=== PATIENT | female | born 1930 | race Caucasian/White ===

== ENCOUNTER 2016-03-28 13:37 | Inpatient (IN) | payer MEDICARE ==
[2016-03-28] MEDS ORDERED: LABETALOL SYRINGE 5 MG/ML IVP STA ×2 (14:04→15:07)
[2016-03-28] MEDS ORDERED: METOPROLOL TARTRATE 25 MG TAB PO STA (14:04)
--- NOTE | 2016-03-28 14:07 | ED ---
General Adult HPI - General Stated complaint: RAPID HEART RATE, ABNORMAL EKG Time Seen by Provider: 03/28/16 13:40 Source: RN notes reviewed - History of Present Illness Initial comments: This is an 85-year-old female who presents emergency Department complaining of a cough recently so she went to see her primary medical care doctor. Patient went to a medical care doctor's office and was told her heart rate was too fast and she needed to go to the emergency department. Patient states she didn't feel like her heart was racing and she didn't have any chest pain or difficulty breathing or shortness of breath. Patient states she's always got edema but she thought the edema in her legs was more decreased recently. Patient states she still has a cough but is not coughing up any sputum. Patient denies any fever or chills. Patient denies any abdominal pain patient denies nausea vomiting diarrhea. Patient denies headache patient denies numbness weakness. Patient denies any lightheadedness dizziness or near syncopal episode. - Related Data Home Medications Medication Instructions Recorded Confirmed Albuterol Sulfate [Proair Hfa] 1 - 2 puff INHALATION RT-Q6H PRN 03/28/16 Budesonide/Formoterol Fumarate 2 puff INHALATION RT-BID 03/28/16 03/28/16 [Symbicort 80-4.5 Mcg Inhaler] Lactulose 10 gm PO TID 03/28/16 03/28/16 Levothyroxine Sodium [Synthroid] 50 mcg PO DAILY 03/28/16 03/28/16 Losartan Potassium 100 mg PO HS 03/28/16 03/28/16 Metoprolol Tartrate [Lopressor] 25 mg PO BID 03/28/16 03/28/16 Spironolactone [Aldactone] 12.5 mg PO DAILY 03/28/16 03/28/16 Torsemide [Demadex] 10 mg PO DAILY PRN 03/28/16 03/28/16 Warfarin [Coumadin] 2.5 mg PO SUMOWEFRSA 03/28/16 03/28/16 Allergies Allergy/AdvReac Type Severity Reaction Status Date / Time codeine Allergy Unknown Verified 03/28/16 14:31 Penicillins Allergy Unknown Verified 03/28/16 14:31 Review of Systems ROS Statement: Those systems with pertinent positive or pertinent negative responses have been documented in the HPI. ROS Other: All systems not noted in ROS Statement are negative. General Exam - General Exam Comments Initial Comments: GENERAL: Patient is well-developed and well-nourished. Patient is nontoxic and well- hydrated and is in no acute distress. ENT: Neck is soft and supple. No significant lymphadenopathy is noted. Oropharynx is clear. Moist mucous membranes. Neck has full range of motion without eliciting any pain. EYES: The sclera were anicteric and conjunctiva were pink and moist. Extraocular movements were intact and pupils were equal round and reactive to light. Eyelids were unremarkable. PULMONARY: Unlabored respirations. Good breath sounds bilaterally. No audible rales rhonchi or wheezing was noted. CARDIOVASCULAR: Patient is tachycardic and irregular at about 130 beats minute ABDOMEN: Soft and nontender with normal bowel sounds. SKIN: Skin is clear with no lesions or rashes and otherwise unremarkable. NEUROLOGIC: Patient is alert and oriented x3. Cranial nerves II through XII are grossly intact. Motor and sensory are also intact. Normal speech, volume and content. Symmetrical smile. MUSCULOSKELETAL: Normal extremities with adequate strength and full range of motion. No lower extremity swelling or edema. No calf tenderness. LYMPHATICS: No significant lymphadenopathy is noted PSYCHIATRIC: Normal psychiatric evaluation. Course Vital Signs 03/28/16 03/28/16 03/28/16 13:48 14:00 14:23 Temperature 97.7 F Pulse Rate 113 H 110 H Pulse Rate [ 120 H Apical] Respiratory 20 20 Rate Blood Pressure 205/128 209/103 O2 Sat by Pulse 95 97 Oximetry 03/28/16 03/28/16 03/28/16 14:51 15:14 15:35 Temperature Pulse Rate 111 H 107 H Pulse Rate [ Apical] Respiratory 20 18 Rate Blood Pressure 172/118 180/110 169/122 O2 Sat by Pulse 97 98 Oximetry 03/28/16 15:40 Temperature Pulse Rate 101 H Pulse Rate [ Apical] Respiratory 18 Rate Blood Pressure 174/94 O2 Sat by Pulse 96 Oximetry Medical Decision Making - Medical Decision Making EKG shows atrial fibrillation with a rapid ventricular response at 129 bpm QRS is 96 QT interval 338 QTC C is 495. Patient's EKG also has a PVC. Patient has no ST segment elevation. Chest x-ray shows no acute abnormality. Patient's blood pressure remained high she was given 10 of labetalol was repeated and continued to be high and her heart rate continued to be over 100 she was given 10 of hydralazine at this point. Patient also had her morning dose of metoprolol while she was here. Patient's heart rate continued to be mildly elevated in the low 100s and blood pressure remained slightly elevated - Lab Data Result diagrams: 03/28/16 14:00 03/28/16 14:00 Lab Results 03/28/16 03/28/16 03/28/16 Range/Units 14:00 14:00 14:00 WBC 5.5 (3.8-10.6) k/uL RBC 5.16 (3.80-5.40) m/uL Hgb 15.4 (11.4-16.0) gm/dL Hct 48.9 H (34.0-46.0) % MCV 94.8 (80.0-100.0) fL MCH 29.9 (25.0-35.0) pg MCHC 31.6 (31.0-37.0) g/dL RDW 13.5 (11.5-15.5) % Plt Count 225 (150-450) k/uL Neutrophils % 72 % Lymphocytes % 17 % Monocytes % 8 % Eosinophils % 1 % Basophils % 1 % Neutrophils # 4.0 (1.3-7.7) k/uL Lymphocytes # 0.9 L (1.0-4.8) k/uL Monocytes # 0.4 (0-1.0) k/uL Eosinophils # 0.1 (0-0.7) k/uL Basophils # 0.1 (0-0.2) k/uL PT (9.0-12.0) sec INR (<1.1) APTT (22.0-30.0) sec Sodium 142 (137-145) mmol/L Potassium 4.2 (3.5-5.1) mmol/L Chloride 101 (98-107) mmol/L Carbon Dioxide 29 (22-30) mmol/L Anion Gap 12 mmol/L BUN 23 H (7-17) mg/dL Creatinine 1.02 (0.52-1.04) mg/dL Est GFR (MDRD) Af Amer >60 (>60 ml/min/1.73 sqM) Est GFR (MDRD) Non-Af 51 (>60 ml/min/1.73 sqM) Glucose 116 H (74-99) mg/dL Calcium 9.5 (8.4-10.2) mg/dL Magnesium 1.4 L (1.6-2.3) mg/dL Total Bilirubin 1.3 (0.2-1.3) mg/dL AST 31 (14-36) U/L ALT 24 (9-52) U/L Alkaline Phosphatase 110 (38-126) U/L Total Creatine Kinase 55 (30-135) U/L CK-MB (CK-2) 2.0 (0.0-2.4) ng/mL CK-MB (CK-2) Rel Index 3.6 Troponin I 0.023 (0.000-0.034) ng/mL NT-Pro-B Natriuret Pep pg/mL Total Protein 7.2 (6.3-8.2) g/dL Albumin 3.8 (3.5-5.0) g/dL 03/28/16 03/28/16 Range/Units 14:00 14:00 WBC (3.8-10.6) k/uL RBC (3.80-5.40) m/uL Hgb (11.4-16.0) gm/dL Hct (34.0-46.0) % MCV (80.0-100.0) fL MCH (25.0-35.0) pg MCHC (31.0-37.0) g/dL RDW (11.5-15.5) % Plt Count (150-450) k/uL Neutrophils % % Lymphocytes % % Monocytes % % Eosinophils % % Basophils % % Neutrophils # (1.3-7.7) k/uL Lymphocytes # (1.0-4.8) k/uL Monocytes # (0-1.0) k/uL Eosinophils # (0-0.7) k/uL Basophils # (0-0.2) k/uL PT 16.5 H (9.0-12.0) sec INR 1.7 (<1.1) APTT 28.0 (22.0-30.0) sec Sodium (137-145) mmol/L Potassium (3.5-5.1) mmol/L Chloride (98-107) mmol/L Carbon Dioxide (22-30) mmol/L Anion Gap mmol/L BUN (7-17) mg/dL Creatinine (0.52-1.04) mg/dL Est GFR (MDRD) Af Amer (>60 ml/min/1.73 sqM) Est GFR (MDRD) Non-Af (>60 ml/min/1.73 sqM) Glucose (74-99) mg/dL Calcium (8.4-10.2) mg/dL Magnesium (1.6-2.3) mg/dL Total Bilirubin (0.2-1.3) mg/dL AST (14-36) U/L ALT (9-52) U/L Alkaline Phosphatase (38-126) U/L Total Creatine Kinase (30-135) U/L CK-MB (CK-2) (0.0-2.4) ng/mL CK-MB (CK-2) Rel Index Troponin I (0.000-0.034) ng/mL NT-Pro-B Natriuret Pep 2610 pg/mL Total Protein (6.3-8.2) g/dL Albumin (3.5-5.0) g/dL Critical Care Time Critical Care Time: Yes Total Critical Care Time: 35 Disposition Clinical Impression: Atrial fibrillation with rapid ventricular response, Hypertensive urgency Disposition: ADMITTED IP TO THIS HOSP Referrals: Brody Keen MD [Primary Care Provider] - 1-2 days Time of Disposition: 15:45
[2016-03-28 14:30] LABS: Basophils # (A) 0.1 k/uL (0-0.2); Basophils % (A) 1 %; CHCM 32.9; Eosinophils # (A) 0.1 k/uL (0-0.7); Eosinophils % (A) 1 %; HCT 48.9 % (34.0-46.0); HDW 2.49; HGB 15.4 gm/dL (11.4-16.0); Luc # (Auto) 0.07; Luc % (Auto) 1; Lymphocytes # (A) 0.9 k/uL (1.0-4.8); Lymphocytes % (A) 17 %; MCH 29.9 pg (25.0-35.0); MCHC 31.6 g/dL (31.0-37.0); MCV 94.8 fL (80.0-100.0); Mean Platelet Volume 8.5; Monocytes # (A) 0.4 k/uL (0-1.0); Monocytes % (A) 8 %; Neutrophils % (A) 72 %; RBC 5.16 m/uL (3.80-5.40); RDW 13.5 % (11.5-15.5); WBC 5.5 k/uL (3.8-10.6); WBC (Perox) 5.37
[2016-03-28 14:34] LABS: INR 1.7 (<1.1); Prothrombin Time 16.5 sec (9.0-12.0)
[2016-03-28 14:37] LABS: ALT 24 U/L (9-52); AST 31 U/L (14-36); Alkaline Phosphatase 110 U/L (38-126); Anion Gap 12 mmol/L; Blood Urea Nitrogen 23 mg/dL (7-17); Calcium 9.5 mg/dL (8.4-10.2); Carbon Dioxide 29 mmol/L (22-30); Chloride 101 mmol/L (98-107); Glucose 116 mg/dL (74-99); Magnesium 1.4 mg/dL (1.6-2.3); Non-African American GFR(MDRD) 51 (>60 ml/min/1.73 sqM); Potassium 4.2 mmol/L (3.5-5.1); Sodium 142 mmol/L (137-145); Total Bilirubin 1.3 mg/dL (0.2-1.3); Total Protein 7.2 g/dL (6.3-8.2)
--- NOTE | 2016-03-28 14:58 | XR ---
EXAMINATION TYPE: XR chest 2V DATE OF EXAM: 03/28/2016 2:49 PM COMPARISON: NONE INDICATION: Difficulty breathing TECHNIQUE: Frontal and lateral views of the chest are obtained. FINDINGS: Heart size is enlarged The pulmonary vasculature is normal. The lungs are clear. IMPRESSION: 1. Cardiomegaly
[2016-03-28 15:01] LABS: Troponin I 0.023 ng/mL (0.000-0.034)
[2016-03-28] MEDS ORDERED: hydrALAZINE HCL 20 MG/ML 1 ML VIAL IVP STA (15:34)
[2016-03-28] MEDS ORDERED: SODIUM CHLORIDE 0.9% 1,000 ML IV ONE (15:58)
[2016-03-28] MEDS ORDERED: TORSEMIDE 20 MG TAB PO PRN (16:01)
[2016-03-28] MEDS ORDERED: WARFARIN 2.5 MG TAB PO SCH (18:00)
[2016-03-28] MEDS ORDERED: LOSARTAN 50 MG TAB PO SCH (21:00)
[2016-03-28 21:02] VITALS: BMI 42.2
[2016-03-28] MEDS: METOPROLOL TARTRATE 25 MG TAB PO SCH (22:05)
[2016-03-28] MEDS: NITROGLYCERIN OINT 1 INCH/GM PACKET TOPICAL SCH (22:54)
[2016-03-28] MEDS: LISINOPRIL 20 MG TAB PO SCH (22:54)
[2016-03-28] MEDS: DILTIAZEM 125 MG in SODIUM CHLORIDE 0.9% 100 ML IV SCH (22:54)
[2016-03-29] MEDS ORDERED: Magnesium Replacement Protocol 1 EACH MISC MISCELLANE PRN (02:21)
[2016-03-29] MEDS: MAGNESIUM SULFATE-D5W PMX 1 GM in DEXTROSE/WATER 1 100ML.BAG IVPB SCH ×3 (03:22→06:55)
[2016-03-29 07:42] LABS: INR 1.8 (<1.1); Prothrombin Time 17.2 sec (9.0-12.0)
[2016-03-29] MEDS: LISINOPRIL 20 MG TAB PO SCH (08:21)
[2016-03-29] MEDS: NITROGLYCERIN OINT 1 INCH/GM PACKET TOPICAL SCH (08:21)
[2016-03-29] MEDS: METOPROLOL TARTRATE 25 MG TAB PO SCH (08:22)
[2016-03-29] MEDS: LEVOTHYROXINE 50 MCG TAB PO SCH (08:25)
[2016-03-29] MEDS: DILTIAZEM 125 MG in SODIUM CHLORIDE 0.9% 100 ML IV SCH (11:55)
[2016-03-29] MEDS: SPIRONOLACTONE 25 MG TAB PO SCH (11:56)
[2016-03-29 13:31] LABS: Hemoglobin A1C 6.2 % (4.2-6.1)
[2016-03-29] MEDS ORDERED: ACETAMINOPHEN TAB 500 MG TAB PO PRN (15:48)
[2016-03-29] MEDS ORDERED: ALPRAZolam 0.25 MG TAB PO PRN (15:48)
[2016-03-29] MEDS: METOPROLOL SUCCINATE (ER) 50 MG TAB.ER.24H PO SCH (16:56)
[2016-03-29] MEDS: FUROSEMIDE 10 MG/ML 4 ML VIAL IV SCH (16:56)
--- NOTE | 2016-03-29 17:20 | P.CRDCN ---
History of Present Illness Consult reason: atrial fibrillation History of present illness: 85-year-old female who was sent by her primary care physician for management of atrial fibrillation with RVR. The patient denied any palpitations she may have been short of breath and she has slight cough and lower extremity edema. She denies any dizziness right heaviness chest discomfort and does not experience any palpitations. Twelve-lead ECG showed A. fib with RVR Medication list was reviewed. She is already on metoprolol 25 mg twice daily and takes Coumadin but does not know why she takes Coumadin ALLERGIES were reviewed Review of systems: No fever chills or rigors, no cough, phlegm or expectoration , no nausea, vomiting or diarrhea, no hematuria, dysuria, no musculoskeletal complaints, no strokes or seizures, no skin lesions. On examination Rhythm was irregular. Heart sounds are soft soft systolic murmur Breath sounds are normal Abdomen soft nontender Mild lower extremity edema She's afebrile, respirations 16, pulse rate between 8200, blood pressure 139/91 mmHg Labs are reviewed. Hemoglobin is normal INR is subtherapeutic at lites are normal GFR 51 TSH 1.3 chronic enzymes normal magnesium is low Hematoma and A1c 6.2 Impression BMI 42 Atrial fibrillation with RVR, unknown duration Minimal symptoms from atrial fibrillation according to the patient Hypertension She states that she has borderline diabetes Hypermagnesemia Suggest Increase the dose of Coumadin to 4 mg by mouth daily Changed to metoprolol succinate 50 mrem twice daily Increase losartan to 150 mrem by mouth daily Taper off IV Cardizem Stop IV Lasix tomorrow 2-D echo after rate control of atrial fibrillation Past Medical History Past Medical History: Atrial Fibrillation, Heart Failure, COPD, Diabetes Mellitus, GERD/Reflux, Hypertension, Renal Disease, Thyroid Disorder Additional Past Medical History / Comment(s): pt stated border line diabetic History of Any Multi-Drug Resistant Organisms: None Reported Past Surgical History: Cholecystectomy, Joint Replacement, Orthopedic Surgery Past Anesthesia/Blood Transfusion Reactions: No Reported Reaction Past Psychological History: No Psychological Hx Reported Smoking Status: Never smoker Past Alcohol Use History: None Reported Past Drug Use History: None Reported - Past Family History Father Family Medical History: Cancer, Myocardial Infarction ([place]) Additional Family Medical History / Comment(s): from cancer and acute [place] Mother Family Medical History: Congestive Heart Failure (CHF) Additional Family Medical History / Comment(s): lew page in the lower extremity, at the age 91 Medications and Allergies Home Medications Medication Instructions Recorded Confirmed Type Albuterol Sulfate [Proair Hfa] 1 - 2 puff INHALATION RT-Q6H PRN 03/28/16 History Budesonide/Formoterol Fumarate 2 puff INHALATION RT-BID 03/28/16 03/28/16 History [Symbicort 80-4.5 Mcg Inhaler] Levothyroxine Sodium [Synthroid] 50 mcg PO DAILY 03/28/16 03/28/16 History Losartan Potassium 100 mg PO HS 03/28/16 03/28/16 History Metoprolol Tartrate [Lopressor] 25 mg PO BID 03/28/16 03/28/16 History Spironolactone [Aldactone] 12.5 mg PO DAILY 03/28/16 03/28/16 History Torsemide [Demadex] 10 mg PO DAILY PRN 03/28/16 03/28/16 History Warfarin [Coumadin] 2.5 mg PO SUMOWEFRSA 03/28/16 03/28/16 History Allergies Allergy/AdvReac Type Severity Reaction Status Date / Time codeine Allergy Unknown Verified 03/28/16 14:31 Penicillins Allergy Unknown Verified 03/28/16 14:31 Physical Exam Vitals: Vital Signs Temp Pulse Pulse Pulse Resp BP BP 03/29/16 16:00 85 16 139/91 03/29/16 15:08 16 03/29/16 12:00 94 16 130/83 03/29/16 08:00 97.3 F L 103 H 16 132/82 03/29/16 04:00 97.0 F L 96 117 H 19 143/105 03/29/16 00:00 97.5 F L 108 H 16 117/80 03/28/16 22:46 124 H 18 175/106 03/28/16 21:30 120 H 18 186/97 03/28/16 18:07 109 H 18 165/90 Pulse Ox 03/29/16 16:00 93 L 03/29/16 15:08 03/29/16 12:00 92 L 03/29/16 08:00 03/29/16 04:00 94 L 03/29/16 00:00 96 03/28/16 22:46 97 03/28/16 21:30 96 03/28/16 18:07 95 Intake and Output 03/29/16 03/29/16 03/29/16 06:59 14:59 22:59 Intake Total 590 541 320 Output Total 600 Balance -10 541 320 Intake: IV 390 320 Diltiazem 125 mg In 80 80 Sodium Chloride 0.9% 100 ml @ 10 MG/HR 10 mls/hr IV .[id number] [facility] Rx#: [id number] Magnesium Sulfate-D5w Pmx 150 1 gm In Dextrose/Water 1 100ml.bag @ 100 mls/hr IVPB Q1H [facility] Rx#: [id number] Sodium Chloride 0.9% 1, 160 240 000 ml @ 20 mls/hr IV . Q24H [facility] Rx#:[id number] Intake, IV Titration 125 Amount Diltiazem 125 mg In 125 Sodium Chloride 0.9% 100 ml @ 10 MG/HR 10 mls/hr IV .[id number] [facility] Rx#: [id number] Oral 200 416 Output: Urine 600 Other: Voiding Method Toilet Toilet Toilet # Voids 2 1 Weight 111.57 kg Results 03/28/16 14:00 03/28/16 14:00 Coagulation 03/29/16 Range/Units 06:32 PT 17.2 H (9.0-12.0) sec Current Medications Generic Name Dose Route Start Last Admin Trade Name Freq PRN Reason Stop Dose Admin Acetaminophen 500 mg 03/29/16 15:48 Tylenol Tab PO Q6HR PRN Fever and/ or Pain Albuterol Sulfate 2.5 mg 03/29/16 20:00 Ventolin Nebulized INHALATION RT-Q6H [facility] Alprazolam 0.25 mg 03/29/16 15:48 Xanax PO TID PRN Anxiety Budesonide/Formoterol Fumarate 2 puff 03/29/16 20:00 Symbicort 80-4.5 Mcg Inhaler INHALATION RT-BID [facility] Furosemide 40 mg 03/29/16 16:00 03/29/16 16:56 Lasix IV 40 mg DAILY [facility] Administration Diltiazem HCl 125 mg/ Sodium 125 mls @ 10 mls/hr 03/28/16 22:00 03/29/16 11: 55 Chloride IV 10 mg/hr .[id number] [facility] 10 mls/hr Protocol Administration 10 MG/HR Levothyroxine Sodium 50 mcg 03/29/16 06:30 03/29/16 08:25 Synthroid PO 50 mcg 0630 [facility] Administration Losartan Potassium 150 mg 03/29/16 17:17 Cozaar PO HS [facility] Melatonin 3 mg 03/29/16 21:00 Melatonin PO HS [facility] Metoprolol Succinate 50 mg 03/29/16 18:00 03/29/16 16:56 Toprol Xl PO 50 mg BID@0600,1800 [facility] Administration Miscellaneous Information 1 each 03/29/16 02:21 Magnesium Per Protocol MISCELLANE DAILY PRN Per Protocol Protocol Pantoprazole Sodium 40 mg 03/30/16 07:30 Protonix PO AC-BRKFST [facility] Spironolactone 12.5 mg 03/29/16 09:00 03/29/16 11:56 Aldactone PO 12.5 mg DAILY [facility] Administration Torsemide 10 mg 03/28/16 16:01 Demadex PO DAILY PRN Edema Warfarin Sodium 5 mg 03/29/16 18:00 03/29/16 16:56 Coumadin PO 03/29/16 18:01 5 mg ONCE@1800 [facility] Administration Warfarin Sodium 4 mg 03/29/16 18:00 Coumadin PO DAILY@1800 [facility] Intake and Output 03/29/16 03/29/16 03/29/16 06:59 14:59 22:59 Intake Total 590 541 320 Output Total 600 Balance -10 541 320 Intake: IV 390 320 Diltiazem 125 mg In 80 80 Sodium Chloride 0.9% 100 ml @ 10 MG/HR 10 mls/hr IV .[id number] [facility] Rx#: [id number] Magnesium Sulfate-D5w Pmx 150 1 gm In Dextrose/Water 1 100ml.bag @ 100 mls/hr IVPB Q1H [facility] Rx#: [id number] Sodium Chloride 0.9% 1, 160 240 000 ml @ 20 mls/hr IV . Q24H [facility] Rx#:[id number] Intake, IV Titration 125 Amount Diltiazem 125 mg In 125 Sodium Chloride 0.9% 100 ml @ 10 MG/HR 10 mls/hr IV .[id number] [facility] Rx#: [id number] Oral 200 416 Output: Urine 600 Other: Voiding Method Toilet Toilet Toilet # Voids 2 1 Weight 111.57 kg
--- NOTE | 2016-03-29 17:40 | HP ---
DATE OF ADMISSION: The chief complaint is rapid heart rate. HISTORY OF PRESENT ILLNESS: This 85-year-old woman with a past medical history of multiple medical problems and atrial fibrillation, history of CHF, COPD, diabetes mellitus, GERD, hypertension, hypothyroidism, history of cholecystectomy being followed by Dr. Brad Keen in the outpatient setting was complaining of cough. Patient was being evaluated for cough in the outpatient setting. The patient was found to have some EKG abnormalities and as well as atrial fibrillation with fast ventricular rate. Patient was taken to [facility], admitted for further evaluation and treatment, nonspecific SVT changes are noted. Patient was started on a Cardizem drip and patient was admitted for further evaluation and treatment. There is no history of fever, chills, or rigors. No history of headache, loss of consciousness. No history of chest pain or palpation. NT-proBNP is 2610. The chest x-ray at the time of admission showed cardiomegaly. PAST MEDICAL HISTORY: History of CHF, history of atrial fibrillation, COPD, diabetes, GERD, hyperlipidemia, hypertension, renal disorder, thyroid disorder, cholecystectomy, DJD. Medications prior to admission include: 1. Coumadin 2.5 mg on Wednesday, Wednesday, Wednesday, Wednesday. 2. Demadex 10 mg daily p.r.n. 3. Aldactone 12.5 mg p.o. daily. 4. Lopressor 25 mg p.o. b.i.d. 5. [id number] mg p.o. q.h.s. 6. Synthroid 50 mcg p.o. daily. 7. Symbicort 80/4.5 two puffs b.i.d. 8. ProAir HFA 1 to 2 puffs q.6 p.r.n. Allergies are CODEINE and PENICILLIN. FAMILY HISTORY: History of cancer, myocardial infarction in the family. SOCIAL HISTORY: No history of smoking, occasional alcohol intake. REVIEW OF SYSTEMS: ENT: Diminished hearing and diminished vision. CARDIOVASCULAR: As mentioned earlier. RESPIRATORY: As mentioned earlier. GI: No nausea. : No dysuria. NERVOUS SYSTEM: No numbness or weakness. ALLERGY/IMMUNOLOGY: No asthma or hayfever. MUSCULOSKELETAL: As mentioned earlier. DERMATOLOGY: As mentioned earlier. ENDOCRINE: Hypothyroidism. CONSTITUTIONAL: As mentioned earlier. DERMATOLOGY: Negative. RHEUMATOLOGY: Negative. PSYCHIATRY: As mentioned earlier. PHYSICAL EXAM: Patient is alert and oriented x3. Pulse is 103, irregular, blood pressure 133/82, respirations 16, temperature is 97.8, pulse ox 92% on room air. HEENT: Conjunctivae normal, oral mucosa moist. NECK: No jugular venous distention. No carotid bruit, no lymph node enlargement. CARDIOVASCULAR: S1, S2, no murmur, no S3, no S4. RESPIRATORY: Breath sounds diminished at the bases, a few scatterer rhonchi, no crackles, respiration in the right base present. Abdomen is soft, obese, nontender, no mass palpable. EXTREMITIES: Legs minimal edema. NERVOUS SYSTEM: Higher functions as mentioned earlier, moves all 4 limbs, no focal motor deficits. LYMPHATICS: No lymph node enlargement in the neck or axillae. SKIN: No ulcerations, rash, bleeding. LABS: WBC 5.5. Otherwise BUN is 20, creatinine is 1.82, magnesium 1.4. ASSESSMENT: 1. Atrial fibrillation with fast ventricular rate. 2. Cough, rule out congestive heart failure acute exacerbation. 3. Hypomagnesemia. 4. Obesity with a body mass index of 42.2. 5. Coumadin monitoring. 6. Diabetes mellitus type 2. 7. History of atrial fibrillation. 8. History of congestive heart failure. 9. Chronic obstructive pulmonary disease. 10. Gastroesophageal reflux disease. 11. Hypertension. 12. History of hypothyroidism. 13. History of degenerative joint disease. 14. FULL CODE. RECOMMENDATION: In this 85-year-old woman who presented with multiple complex medical issues, will monitor the patient closely. Continue with the current medications and continue with and I would recommend continue with Coumadin. I will administer 5 mg of Coumadin today. Otherwise, continue the rest of the medications. Cardiology consultation, beta blockers will be initiated, a 2-D echo with Doppler has been ordered. Further recommendations to follow. Prognosis guarded. Discussed with the patient. Further recommendations to follow. A copy of this will be followed with Dr. Brody Keen who is the primary care physician. MICH
[2016-03-29] MEDS ORDERED: WARFARIN 5 MG TAB PO ONE (18:00)
[2016-03-29] MEDS: WARFARIN 2 MG TAB PO SCH (19:51)
[2016-03-29] MEDS: ALBUTEROL NEBULIZED 2.5 MG/3 ML INHALATION SCH (20:32)
[2016-03-29] MEDS: SYMBICORT 80-4.5 MCG INHALER INHALATION SCH (20:32)
[2016-03-29] MEDS: LOSARTAN 50 MG TAB PO SCH (21:06)
[2016-03-29] MEDS: MELATONIN 3 MG TABLET PO SCH (21:07)
[2016-03-30] MEDS: DILTIAZEM 125 MG in SODIUM CHLORIDE 0.9% 100 ML IV SCH ×2 (01:25→09:36)
[2016-03-30] MEDS: ALBUTEROL NEBULIZED 2.5 MG/3 ML INHALATION SCH ×4 (03:31→21:44)
[2016-03-30 06:18] LABS: Basophils % (A) 0 %; CH 30.7; Eosinophils # (A) 0.2 k/uL (0-0.7); Eosinophils % (A) 4 %; HCT 45.2 % (34.0-46.0); HDW 2.36; HGB 14.2 gm/dL (11.4-16.0); Luc # (Auto) 0.11; Luc % (Auto) 2; Lymphocytes % (A) 21 %; MCH 30.4 pg (25.0-35.0); MCHC 31.5 g/dL (31.0-37.0); MCV 96.4 fL (80.0-100.0); Mean Platelet Volume 7.5; Monocytes # (A) 0.5 k/uL (0-1.0); Monocytes % (A) 10 %; Neutrophils % (A) 63 %; RBC 4.69 m/uL (3.80-5.40); RDW 13.6 % (11.5-15.5); WBC 4.8 k/uL (3.8-10.6); WBC (Perox) 4.92
[2016-03-30 06:23] LABS: Magnesium 1.7 mg/dL (1.6-2.3); Potassium 4.3 mmol/L (3.5-5.1)
[2016-03-30 06:30] LABS: INR 2.1 (<1.1); Prothrombin Time 19.8 sec (9.0-12.0)
[2016-03-30] MEDS: PANTOPRAZOLE 40 MG TABLET PO SCH (06:58)
[2016-03-30] MEDS: METOPROLOL SUCCINATE (ER) 50 MG TAB.ER.24H PO SCH (06:58)
[2016-03-30] MEDS: LEVOTHYROXINE 50 MCG TAB PO SCH (06:59)
[2016-03-30] MEDS: SPIRONOLACTONE 25 MG TAB PO SCH (09:45)
[2016-03-30] MEDS: SYMBICORT 80-4.5 MCG INHALER INHALATION SCH ×2 (09:45→21:44)
[2016-03-30] MEDS: FUROSEMIDE 10 MG/ML 4 ML VIAL IV SCH (09:47)
[2016-03-30] MEDS: MAGNESIUM SULFATE-D5W PMX 1 GM in DEXTROSE/WATER 1 100ML.BAG IVPB SCH ×2 (09:47→11:19)
--- NOTE | 2016-03-30 10:07 | ECHOF ---
Referral Reason:chf MEASUREMENTS -------- HEIGHT: 162.6 cm WEIGHT: 112.9 kg BP: 130/79 RVIDd: 3.5 cm (< 3.3) IVSd: 1.5 cm (0.6 - 1.1) LVIDd: 4.4 cm (3.9 - 5.3) LVPWd: 1.4 cm (0.6 - 1.1) IVSs: 1.8 cm LVIDs: 3.5 cm LVPWs: 2.0 cm LA Diam: 4.1 cm (2.7 - 3.8) LAESV Index (A-L): 45.45 ml/m Ao Diam: 3.2 cm (2.0 - 3.7) AV Cusp: 2.0 cm (1.5 - 2.6) LA Diam: 4.8 cm (2.7 - 3.8) MV EXCURSION: 15.249 mm (> 18.000) MV EF SLOPE: 112 mm/s (70 - 150) EPSS: 0.5 cm MV E Kev: 0.98 m/s MV DecT: 163 ms MV A Kev: 0.38 m/s MV E/A Ratio: 2.56 RAP: 5.00 mmHg RVSP: 52.98 mmHg FINDINGS -------- Resting tachycardia (HR>100bpm). This was a technically good study. There is moderate concentric left ventricular hypertrophy. Overall left ventricular systolic function is normal with, an EF between 55 - 60 %. The right ventricle is mildly enlarged. LA is severely dilated >40 ml/m2 RA appears enlarged. Aortic valve is trileaflet and is mildly thickened. The mitral valve leaflets are mildly thickened. Mild mitral annular calcification present. Mild mitral regurgitation is present. [id number] tricuspid regurgitation present. There is moderate pulmonary hypertension. The right ventricular systolic pressure, as measured by Doppler, is 52.98mmHg. The pulmonic valve was not well visualized. The aortic root size is normal. Normal inferior vena cava with normal inspiratory collapse consistent with estimated right atrial pressure of 5 mmHg. There is no pericardial effusion. CONCLUSIONS -------- 1. Resting tachycardia (HR>100bpm). 2. Mild mitral annular calcification present. 3. Mild mitral regurgitation is present. 4. Cwik-gk-kjwnbnrv tricuspid regurgitation present. 5. There is moderate pulmonary hypertension. 6. The right ventricular systolic pressure, as measured by Doppler, is 52.98mmHg. 7. The pulmonic valve was not well visualized. 8. The aortic root size is normal. 9. There is no pericardial effusion. 10. This was a technically good study. 11. There is moderate concentric left ventricular hypertrophy. 12. Overall left ventricular systolic function is normal with, an EF between 55 - 60 %. 13. The right ventricle is mildly enlarged. 14. LA is severely dilated >40 ml/m2 15. RA appears enlarged. 16. Aortic valve is trileaflet and is mildly thickened. 17. The mitral valve leaflets are mildly thickened. DRAW PRESS OPERATOR: Sid Ramirez RDCS
--- NOTE | 2016-03-30 14:47 | P.PN ---
Subjective Principal diagnosis: Erick luna This is an 85-year-old female admitted to the hospital because of atrial fibrillation with rapid ventricular response. She denies experiencing any palpitations. Patient does state that she's had a persistent cough as well as lower extremity swelling. Patient also has a history of borderline diabetes. Magnesium level on admission 1.4, 1.7 this morning. Continues to be in atrial fibrillation with a heart rate in the 120 range. We will increase the dose of beta quirino, discontinue Cardizem drip, discontinue IV Lasix and start the patient on Lasix 20 mg daily. We will also attempt to obtain records from her primary care doctor regarding why she takes Coumadin. Continue Coumadin 4 mg daily and check daily PT/INRs. INR today is 2.1. Objective - Vital Signs Vital signs: Vital Signs Temp 98.3 F 03/30/16 12:00 Pulse 106 H 03/30/16 12:00 Resp 16 03/30/16 12:00 BP 122/90 03/30/16 12:00 Pulse Ox 94 L 03/30/16 12:00 Intake & Output 03/29/16 03/30/16 03/30/16 18:59 06:59 18:59 Intake Total 861 420 Output Total 500 Balance 361 420 Weight 113.3 kg Intake: IV 320 Diltiazem 125 mg In 80 Sodium Chloride 0.9% 100 ml @ 10 MG/HR 10 mls/hr IV .[id number] [facility] Rx#: [id number] Sodium Chloride 0.9% 1, 240 000 ml @ 20 mls/hr IV . Q24H [facility] Rx#:[id number] Intake, IV Titration 125 200 Amount Diltiazem 125 mg In 125 Sodium Chloride 0.9% 100 ml @ 10 MG/HR 10 mls/hr IV .[id number] [facility] Rx#: [id number] Magnesium Sulfate-D5w Pmx 200 1 gm In Dextrose/Water 1 100ml.bag @ 100 mls/hr IVPB Q1H [facility] Rx#: [id number] Oral 416 220 Output: Urine 500 Other: Voiding Method Toilet # Voids 1 1 2 - Exam PHYSICAL EXAMINATION: HEENT: Head is atraumatic, normocephalic. Pupils equal, round. Neck is supple. There is no elevated jugular venous pressure. HEART EXAMINATION: Heart S1 and S2 irregular irregular CHEST EXAMINATION: Lungs are clear to auscultation and precussion. No chest wall tenderness is noted on palpation or with deep breathing. ABDOMEN: Soft, nontender. Bowel sounds are heard. No organomegaly noted. EXTREMITIES: 2+ peripheral pulses with trace evidence of peripheral edema and no calf tenderness noted. NEUROLOGIC patient is awake, alert and oriented -3. . - Labs CBC & Chem 7: 03/30/16 05:53 03/30/16 05:53 Labs: Abnormal Lab Results - Last 24 Hours (Table) 03/30/16 03/30/16 Range/Units 05:53 05:53 PT 19.8 H (9.0-12.0) sec BUN 24 H (7-17) mg/dL Creatinine 1.14 H (0.52-1.04) mg/dL Glucose 109 H (74-99) mg/dL Assessment and Plan (1) COPD (chronic obstructive pulmonary disease) Status: Acute (2) Diabetes Status: Acute (3) GERD (gastroesophageal reflux disease) Status: Acute (4) Hyperlipemia Status: Acute (5) Renal insufficiency Status: Acute (6) Paroxysmal a-fib Status: Acute (7) Atrial fibrillation with rapid ventricular response Status: Acute (8) Diastolic CHF Status: Acute Plan: Cardiology's perspective, we will increase beta quirino to 100 mg by mouth twice a day, discontinue Cardizem drip, discontinue IV Lasix, start the patient on Lasix 20 mg daily, continue Coumadin 4 mg daily check daily PT/INRs. We will also check to see what the patient was taking Coumadin as an outpatient. DNP note has been reviewed, I agree with a documented findings and plan of care. Patient was seen and examined.
[2016-03-30 18:05] LABS: Appearance,Urine Clear (Clear); Bilirubin,Urine Negative (Negative); Glucose,Urine (UA) Negative (Negative); Ketones,Urine Negative (Negative); Leukocyte Esterase,Urine Negative (Negative); Nitrite,Urine Negative (Negative); Protein,Urine Negative (Negative); Specific Gravity,Urine 1.005 (1.001-1.035); UA Billing (MACRO vs. MICRO) CHEM; Urobilinogen,Urine <2.0 mg/dL (<2.0)
[2016-03-30] MEDS: WARFARIN 2 MG TAB PO SCH ×2 (19:32→19:33)
[2016-03-30] MEDS: LOSARTAN 50 MG TAB PO SCH (20:35)
[2016-03-30] MEDS: METOPROLOL SUCCINATE (ER) 100 MG TAB.ER.24H PO SCH (20:35)
[2016-03-30] MEDS: MELATONIN 3 MG TABLET PO SCH (20:36)
[2016-03-31] MEDS: ALBUTEROL NEBULIZED 2.5 MG/3 ML INHALATION SCH ×2 (02:21→10:18)
--- NOTE | 2016-03-31 06:09 | PN ---
DATE OF SERVICE: 03/30/2016 This 85-year-old woman was admitted with rapid ventricular rate, is being closely monitored. Cardiology is following the patient closely. CHF was also suspected at the time of admission. Beta blockers have been initiated. No chest pain, no palpitations. No fever. On exam, alert and oriented x3. Pulse 86, blood pressure 120/82, respirations 16, temperature 97.4, pulse ox 94% on room air. HEENT: Conjunctivae normal. NECK: No jugular venous distention. CARDIOVASCULAR: S1 and S2, irregular. RESPIRATORY: Breath sounds diminished at the bases. No rhonchi, no crackles. ABDOMEN: Soft, nontender. LEGS: No edema, no swelling. NERVOUS SYSTEM: No focal deficits. LABS: Creatinine 1.14, hemoglobin is 6.2. ASSESSMENT: 1. Atrial fibrillation with fast ventricular rate present on admission. 2. Severe cardiomegaly. 3. Congestive heart failure, acute exacerbation, acute on chronic diastolic dysfunction, ejection fraction 50% to 55%. 4. Cough. 5. Hypermagnesemia. 6. Obesity, body mass index of 42.2. 7. Coumadin monitoring. 8. Diabetes mellitus type 2. 9. History of atrial fibrillation. 10. History of congestive heart failure. 11. History of chronic obstructive pulmonary disease. 12. Gastroesophageal reflux disease. 13. Hypertension. 14. Hypothyroidism. 15. History of degenerative joint disease. 16. FULL CODE. RECOMMENDATIONS AND DISCUSSION: In this 85-year-old woman who presented with multiple medical problems, will monitor the patient closely, continue the current medications and symptomatic treatment. Repeat labs. Closely follow with Cardiology. Check UA with micro. Guarded prognosis because of the multiple complex medical issues. Further recommendations to follow.
[2016-03-31] MEDS: PANTOPRAZOLE 40 MG TABLET PO SCH (06:37)
[2016-03-31] MEDS: LEVOTHYROXINE 50 MCG TAB PO SCH (06:37)
[2016-03-31 06:57] LABS: Basophils % (A) 0 %; CH 30.7; Eosinophils # (A) 0.2 k/uL (0-0.7); Eosinophils % (A) 4 %; HCT 45.8 % (34.0-46.0); HDW 2.36; HGB 14.5 gm/dL (11.4-16.0); Luc # (Auto) 0.16; Luc % (Auto) 3; Lymphocytes # (A) 1.1 k/uL (1.0-4.8); Lymphocytes % (A) 20 %; MCH 30.5 pg (25.0-35.0); MCHC 31.6 g/dL (31.0-37.0); MCV 96.5 fL (80.0-100.0); Mean Platelet Volume 7.3; Monocytes # (A) 0.6 k/uL (0-1.0); Monocytes % (A) 11 %; Neutrophils # (A) 3.4 k/uL (1.3-7.7); Neutrophils % (A) 62 %; RBC 4.74 m/uL (3.80-5.40); RDW 13.5 % (11.5-15.5); WBC 5.5 k/uL (3.8-10.6); WBC (Perox) 5.57
[2016-03-31 07:04] LABS: INR 2.8 (<1.1); Prothrombin Time 27.2 sec (9.0-12.0)
[2016-03-31 07:06] LABS: Calcium 8.8 mg/dL (8.4-10.2); Magnesium 1.8 mg/dL (1.6-2.3); Potassium 4.3 mmol/L (3.5-5.1)
[2016-03-31 08:16] VITALS: TEMP 97.2
[2016-03-31] MEDS ORDERED: FUROSEMIDE 20 MG TAB PO SCH (09:00)
[2016-03-31] MEDS: METOPROLOL SUCCINATE (ER) 100 MG TAB.ER.24H PO SCH (09:51)
[2016-03-31] MEDS: SPIRONOLACTONE 25 MG TAB PO SCH (09:51)
[2016-03-31] MEDS: SYMBICORT 80-4.5 MCG INHALER INHALATION SCH (10:18)
[2016-03-31 11:23] VITALS: BP 126/68; PULSE 84; RESP 18
--- NOTE | 2016-03-31 13:23 | P.PCN ---
Preoperative Diagnosis: Impression 85-year-old female with persistent atrial fibrillation with RVR On anticoagulation and rate control medications Hypertension Hypothyroidism 2-D echo shows preserved LV systolic function with moderate left ventricular hypertrophy Plan Rate control, anticoagulation Lasix 20 mg daily, spironolactone 12.5 g daily, Metoprolol succinate 100 mg twice daily Losartan 150 mg daily at bedtime Warfarin 3 mg by mouth daily She was subtherapeutic on 2.5 mg of Coumadin
--- NOTE | 2016-03-31 14:09 | P.PN ---
Subjective Principal diagnosis: A. cheryl This is an 85-year-old female admitted to the hospital because of atrial fibrillation with rapid ventricular response. She denies experiencing any palpitations. Patient does state that she's had a persistent cough as well as lower extremity swelling. Patient also has a history of borderline diabetes. Patient continues to be in atrial fibrillation, heart rate in the 70s today. INR 2.8. Echo revealed normal left ventricular systolic function. Objective - Vital Signs Vital signs: Vital Signs Temp 97.2 F L 03/31/16 11:21 Pulse 84 03/31/16 11:21 Resp 18 03/31/16 11:21 BP 126/68 03/31/16 11:21 Pulse Ox 93 L 03/31/16 11:21 Intake & Output 03/30/16 03/31/16 03/31/16 18:59 06:59 18:59 Intake Total 150 100 Output Total 200 Balance -50 100 Weight 113 kg Intake: Oral 150 100 Output: Urine 200 Other: Voiding Method Toilet Toilet # Voids 1 # Bowel Movements 0 - Exam PHYSICAL EXAMINATION: HEENT: Head is atraumatic, normocephalic. Pupils equal, round. Neck is supple. There is no elevated jugular venous pressure. HEART EXAMINATION: Heart S1 and S2 irregular irregular CHEST EXAMINATION: Lungs are clear to auscultation and precussion. No chest wall tenderness is noted on palpation or with deep breathing. ABDOMEN: Soft, nontender. Bowel sounds are heard. No organomegaly noted. EXTREMITIES: 2+ peripheral pulses with trace evidence of peripheral edema and no calf tenderness noted. NEUROLOGIC patient is awake, alert and oriented -3. . - Labs CBC & Chem 7: 03/31/16 06:28 03/31/16 06:28 Labs: Abnormal Lab Results - Last 24 Hours (Table) 03/31/16 03/31/16 Range/Units 06:28 06:28 PT 27.2 H (9.0-12.0) sec BUN 28 H (7-17) mg/dL Creatinine 1.33 H (0.52-1.04) mg/dL Glucose 103 H (74-99) mg/dL Assessment and Plan (1) COPD (chronic obstructive pulmonary disease) Status: Acute (2) Diabetes Status: Acute (3) GERD (gastroesophageal reflux disease) Status: Acute (4) Hyperlipemia Status: Acute (5) Renal insufficiency Status: Acute (6) Paroxysmal a-fib Status: Acute (7) Atrial fibrillation with rapid ventricular response Status: Acute (8) Diastolic CHF Status: Acute Plan: Cardiology's perspective, she may be able to be discharged once the primary. She can follow-up with her patient registration supervisor post discharge. DNP note has been reviewed, I agree with a documented findings and plan of care. Patient was seen and examined.
[2016-03-31] MEDS ORDERED: WARFARIN 3 MG TAB PO SCH (18:00)
[2016-03-31] MEDS ORDERED: WARFARIN 2.5 MG TAB PO SCH (18:00)
--- NOTE | 2016-04-01 12:09 | DS ---
DATE OF ADMISSION: 03/30/2016 DATE OF DISCHARGE: 03/31/2016 DATE OF SERVICE: 03/31/2016 FINAL DIAGNOSES: 1. Atrial fibrillation with fast ventricular rate, present on admission. 2. Severe cardiomegaly. 3. Congestive heart failure acute exacerbation with acute on chronic diastolic dysfunction, ejection fraction 50% to 55%. 4. Cough. 5. Hypermagnesemia. 6. Obesity with a body mass index of 42.2. 7. Coumadin monitoring. 8. Diabetes mellitus type 2. 9. History of atrial fibrillation. 10. History of congestive heart failure. 11. History of chronic obstructive pulmonary disease. 12. Gastroesophageal reflux disease. 13. Hypertension. 14. Hypothyroidism. 15. History of degenerative joint disease. 16. FULL CODE. DISCHARGE DISPOSITION: The patient will be discharged in a stable condition with guarded prognosis. Cardiology cleared the patient for discharge. HISTORY OF PRESENT ILLNESS: This is an 85-year-old woman with a past medical history of multiple medical problems, admitted with atrial fibrillation with a fast ventricular rate. Patient was treated with Cardizem, improved significantly. Patient also had CHF, also 2-D echo was reviewed. The patient improved significantly. Cardiology cleared the patient for discharge. On exam, vitals are stable. CARDIOVASCULAR SYSTEM: S1, S2, muffled. RESPIRATORY: Breath sounds diminished at the bases. ABDOMEN: Soft. NERVOUS SYSTEM: No focal deficits. DISCHARGE ADVICE: 1. Diet is cardiac. 2. Activity limited until followup. 3. Follow up with Dr. Brody Keen in 2 to 3 days. 4. Follow up with Cardiology as recommended. Medications are: 1. Xanax 0.25 t.i.d. p.r.n. 2. ProAir HFA 1 to 2 puffs q.6. p.r.n. 3. Synthroid 2 puffs b.i.d. 4. Lasix 20 mg p.o. daily. 5. Levothyroxine. 6. Synthroid 50 mcg p.o. daily. 7. Losartan 150 mg q.h.s. 8. Toprol-XL 100 mg p.o. b.i.d. 9. Aldactone 12.5 mg p.o. daily. 10. Coumadin 3 mg p.o. daily. CBC, BMP, PT, INR with the primary physician. Follow up with Cardiology as advised. Once again the patient will be discharged in a stable condition with a guarded prognosis.
== END 2016-03-31 15:43 | disposition home or self-care (01) | DRG 308 ==
LOC: EC 13:37 → 6SEL 16:01 → INTOOBSV 16:01 → OBSVTOIN 16:01 → 6SEL 21:06 → INTOOBSV 03-30 14:57 → OBSVTOIN 03-30 14:57 → UNDODISIN 03-31 15:43
PROVIDERS: ADMIT Internal Medicine; ATTEND Internal Medicine
DX: I48.1 Persistent atrial fibrillation (principal); I50.33 Acute on chronic diastolic (congestive) heart failure; J44.9 Chronic obstructive pulmonary disease, unspecified; E83.42 Hypomagnesemia; E11.9 Type 2 diabetes mellitus without complications; I11.0 Hypertensive heart disease with heart failure; I49.3 Ventricular premature depolarization; K21.9 Gastro-esophageal reflux disease without esophagitis; E03.9 Hypothyroidism, unspecified; M19.90 Unspecified osteoarthritis, unspecified site; I16.0 Hypertensive urgency; E78.5 Hyperlipidemia, unspecified; N28.9 Disorder of kidney and ureter, unspecified; Z88.0 Allergy status to penicillin; Z88.5 Allergy status to narcotic agent; Z96.60 Presence of unspecified orthopedic joint implant; Z90.49 Acquired absence of other specified parts of digestive tract; Z79.01 Long term (current) use of anticoagulants; Z79.51 Long term (current) use of inhaled steroids; Z79.899 Other long term (current) drug therapy; Z82.49 Family history of ischemic heart disease and other diseases of the circulatory system
CPT/HCPCS: 36415; 71020; 80048; 80053; 81003; 82550; 82553; 83036; 83735; 83880; 84443; 84484; 85025; 85610; 85730; 93005; 93306; 94640; 94760; 96374; 96375; 96376; 99291